=== PATIENT | female | born 1990 | race Caucasian/White ===

== ENCOUNTER 2023-05-03 18:09 | Emergency (ER) | payer SELFPAY ==
[2023-05-03] VITALS (7 sets, daily range): BP systolic 112–151; BP diastolic 59–89
[~2023-05-03] VITALS: Ht 154.9 cm; Wt 75.0 kg
[2023-05-03 19:20] LABS: HCG SERUM/URINE (NEG/POS) NEGATIVE (NEGATIVE)
[2023-05-03 19:21] LABS: URINE BILIRUBIN - DIPSTICK NEGATIVE (NEGATIVE); URINE BLOOD DIPSTICK LARGE (NEGATIVE); URINE COLOR YELLOW; URINE GLUCOSE - DIPSTICK NEGATIVE (NEGATIVE); URINE KETONE NEGATIVE (NEGATIVE); URINE PROTEIN - DIPSTICK TRACE mg/dL (NEG-TRACE); URINE SPECIFIC GRAVITY 1.015; URINE UROBILINOGEN - DIPSTICK 0.2 E.U./dL (0.2)
[2023-05-03 19:25] LABS: URINE LEUK ESTERASE SMALL (NEGATIVE); URINE NITRITE - DIPSTICK NEGATIVE (Negative)
[2023-05-03 19:34] LABS: URINE BACTERIA FEW hpf; URINE SQUAMOUS EPITHELIAL CELL FEW EPI/hpf (0-FEW)
[2023-05-03] MEDS ORDERED: CIPROFLOXACIN250 MG PO (20:28)
[2023-05-03] MEDS ORDERED: DIFLUCAN150 MG PO (20:28)
== END 2023-05-03 20:58 | disposition home or self-care (01) | DRG 690 ==
LOC: ED 18:09
PROVIDERS: Family Medicine
DX: N39.0 Urinary tract infection, site not specified (principal); B37.31 Acute candidiasis of vulva and vagina

== ENCOUNTER 2023-06-26 02:38 | Emergency (ER) | payer SELFPAY ==
[~2023-06-26] VITALS: Ht 154.9 cm; Wt 71.6 kg
[~2023-06-26 02:38] MED LIST: CIPROFLOXACIN250 MG PO; DIFLUCAN150 MG PO
[2023-06-26 02:54] VITALS: BP 123/77
[2023-06-26 03:00] VITALS: BP 113/69
[2023-06-26 03:59] VITALS: BP 102/62
== END 2023-06-26 04:23 | disposition home or self-care (01) | DRG 923 ==
LOC: ED 02:38
DX: T74.21XA Adult sexual abuse, confirmed, initial encounter (principal); Y04.8XXA Assault by other bodily force, initial encounter; Y07.03 Male partner, perpetrator of maltreatment and neglect